=== PATIENT | female | born 1965 | race Caucasian/White ===

== ENCOUNTER 2023-11-09 13:54 | Outpatient (AMB) | payer OTHER, SELFPAY ==
--- NOTE | 2023-11-09 14:11 | HO.NEPHOV_ITS ---
HPI HPI Comments History of Present Illness Details I would the privilege of seeing Fabiola in follow-up of hypertension on a background of SLE. She is currently grieving from unexpected sudden loss of her . She has history of a TIA symptoms affecting right side. She has lost close to 40 lb of weight. Her hemoglobin A1c was 5.6. Her renal functions have been stable. She gets Benlysta for her lupus. She has been having ongoing issues with joint swelling despite infusions. She has no hematuria or proteinuria. She denies nausea, vomiting, diarrhea, shortness of breath, paroxysmal nocturnal dyspnea, orthopnea or pedal edema. All other systems have been reviewed and were negative. [facility] Medical History (Updated 11/09/23 @ 14:53 by Yasir Mcwilliams MD) SLE (systemic lupus erythematosus) Essential (primary) hypertension Social History (Updated 11/09/23 @ 14:20 by Maria Luisa Kim MA) Patient Tobacco Use Status: Never used Tobacco Use of substances other than those prescribed or required for medical reasons: No Vital Signs 11/09/23 14:12 Height 5 ft 1 in Weight 155 lb 2 oz BMI 29.3 BP 100/64 Blood Pressure Location Lt brachial Position Sitting Pulse 87 Pulse Source Pulse Oximeter Pulse Oximetry (%) 96 Oxygen Delivery Method Room Air Physical Exam Vital Signs: Last Vital Signs Pulse 87 11/09/23 14:12 BP 100/64 11/09/23 14:12 Pulse Ox 96 11/09/23 14:12 Oxygen Delivery Method Room Air 11/09/23 14:12 BMI result Body Mass Index 29.3 Const General: comfortable and no acute distress Orientation/consciousness: patient oriented x3 HEENT Head: Yes normocephalic Mouth: Normal oral and palatal mucosa present Eyes EOM: EOMs intact bilaterally Neck Neck: Yes supple Resp Auscultation: clear to auscultation bilaterally Cardio Jugular venous distension: no JVD Rate: regular rate GI Palpation (GI): Soft to palpation Auscultation: normal bowel sounds General: Yes no CVA tenderness Back/Spine/Pelvis Back: no CVA tenderness Skin General skin exam: no rashes or lesions noted Neuro General: patient oriented x3 and moves all extremities Extrem General: Yes no pedal edema Assessment & Plan Assessment & Plan (1) SLE (systemic lupus erythematosus): Code(s): M32.9 - Systemic lupus erythematosus, unspecified Qualifiers: Systemic lupus erythematosus type: unspecified Systemic lupus erythematosus organ involvement: unspecified Qualified Code(s): M32.9 - Systemic lupus erythematosus, unspecified (2) Essential (primary) hypertension: Code(s): I10 - Essential (primary) hypertension Plan Her blood pressure is at goal. She is on Benlysta. Her last A1c was 5.6. She is tolerating lisinopril well. She does not have any orthostatic symptoms. She could continue current dose of lisinopril and amlodipine. She has on a low- sodium diet. Her renal functions had been stable. She had no evidence of SLE nephritis. I did not make any medication changes today. Follow-up blood work ordered. Follow-up appointment given. Answered all questions. Orders: Orders Blood Urea Nitrogen Today I10 - Essential (primary) hypertension, M32.9 - Systemic lupus erythematosus, unspecified Creatinine Today I10 - Essential (primary) hypertension, M32.9 - Systemic lupus erythematosus, unspecified UA and rflx microscopic Today I10 - Essential (primary) hypertension, M32.9 - Systemic lupus erythematosus, unspecified Protein Creatinine Ratio, Ur Today I10 - Essential (primary) hypertension, M32.9 - Systemic lupus erythematosus, unspecified Electrolytes Today I10 - Essential (primary) hypertension, M32.9 - Systemic lupus erythematosus, unspecified Calcium Today I10 - Essential (primary) hypertension, M32.9 - Systemic lupus erythematosus, unspecified Coding Level of Care Code Est Pt Level 3 (44016) Diagnoses Systemic lupus erythematosus, unspecified SLE type, unspecified organ involvement status M32.9 Systemic lupus erythematosus type: unspecified Systemic lupus erythematosus organ involvement: unspecified Essential (primary) hypertension I10 Results Reviewed Nephrology Results: No Data to Display
[2023-11-09 14:12] VITALS: BP 100/64; PULSE 87; O2SAT 96; BMI 29.3
== END 2023-11-09 15:12 | disposition home or self-care (01) ==
PROVIDERS: PCP Internal Medicine; Visit Provider Internal Medicine Nephrology
DX: M32.9 Systemic lupus erythematosus, unspecified (principal); I10 Essential (primary) hypertension
CPT/HCPCS: 99213

== ENCOUNTER → 2023-11-09 13:54 | Outpatient (BNVA) | payer OTHER, SELFPAY | PROVIDERS: PCP Internal Medicine; Visit Provider Internal Medicine Nephrology ==

== ENCOUNTER 2024-05-11 13:13 | Outpatient (AMB) | payer OTHER, SELFPAY ==
--- NOTE | 2024-05-11 13:17 | HO.NEPHOV_ITS ---
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 Accompanied by: Self / Same As Patient Allergies clindamycin Allergy (Verified 05/11/24 13:23) Unknown codeine Allergy (Verified 05/11/24 13:23) Unknown erythromycin base Allergy (Verified 05/11/24 13:23) Unknown escitalopram [From Lexapro] Allergy (Verified 05/11/24 13:23) Unknown hydroxychloroquine Allergy (Verified 05/11/24 13:23) Unknown metronidazole Allergy (Verified 05/11/24 13:23) Unknown Penicillins Allergy (Verified 05/11/24 13:23) Unknown propoxyphene Allergy (Verified 05/11/24 13:23) Unknown Sulfa (Sulfonamide Antibiotics) Allergy (Verified 05/11/24 13:23) Unknown HPI Comments Details: I would the privilege of seeing Fabiola in follow-up of hypertension on a background of SLE. She is still grieving from unexpected sudden loss of her . She has history of a TIA symptoms affecting right side. She has lost close to 40 lb of weight. Her hemoglobin A1c was 5.6. Her renal functions have been stable. She gets Benlysta for her lupus. She has been having ongoing issues with joint swelling despite infusions. She has no hematuria or proteinuria. She denies nausea, vomiting, diarrhea, shortness of breath, paroxysmal nocturnal dyspnea, orthopnea or pedal edema. All other systems have been reviewed and were negative. [facility] Medical History (Updated 11/09/23 @ 14:53 by Yasir Mcwilliams MD) SLE (systemic lupus erythematosus) Essential (primary) hypertension Social History Patient Tobacco Use Status: Never used Tobacco Review of Systems Const All systems reviewed & are unremarkable except as noted in HPI and below Physical Exam Vital Signs: Last Vital Signs Pulse 81 05/11/24 13:21 BP 124/82 05/11/24 13:21 Pulse Ox 97 05/11/24 13:21 Oxygen Delivery Method Room Air 05/11/24 13:21 BMI result Body Mass Index 29.6 Const General: comfortable and no acute distress Orientation/consciousness: patient oriented x3 HEENT Head: Yes normocephalic Mouth: Normal oral and palatal mucosa present Eyes EOM: EOMs intact bilaterally Neck Neck: Yes supple Resp Auscultation: clear to auscultation bilaterally Cardio Jugular venous distension: no JVD Rate: regular rate GI Palpation (GI): Soft to palpation Auscultation: normal bowel sounds General: Yes no CVA tenderness Back/Spine/Pelvis Back: no CVA tenderness Skin General skin exam: no rashes or lesions noted Neuro General: patient oriented x3 and moves all extremities Extrem General: Yes no pedal edema Results Reviewed Nephrology Results: No Data to Display Assessment & Plan Assessment & Plan (1) SLE (systemic lupus erythematosus): Code(s): M32.9 - Systemic lupus erythematosus, unspecified Category: Medical Qualifiers: Systemic lupus erythematosus organ involvement: unspecified Systemic lupus erythematosus type: unspecified Qualified Code(s): M32.9 - Systemic lupus erythematosus, unspecified (2) Essential (primary) hypertension: Code(s): I10 - Essential (primary) hypertension Category: Medical Plan Her blood pressure is at goal. She is on Benlysta. Her last A1c was 5.6. She is off lisinopril and Amlodipine. She does not have any orthostatic symptoms. She has on a low-sodium diet. Her renal functions had been stable. She had no evidence of SLE nephritis. I did not make any medication changes today. Follow-up blood work ordered. Answered all questions Orders: Orders Creatinine Today I10 - Essential (primary) hypertension, M32.9 - Systemic lupus erythematosus, unspecified UA and rflx microscopic Today I10 - Essential (primary) hypertension, M32.9 - Systemic lupus erythematosus, unspecified Protein Creatinine Ratio, Ur Today I10 - Essential (primary) hypertension, M32.9 - Systemic lupus erythematosus, unspecified Blood Urea Nitrogen Today I10 - Essential (primary) hypertension, M32.9 - Systemic lupus erythematosus, unspecified Electrolytes Today I10 - Essential (primary) hypertension, M32.9 - Systemic lupus erythematosus, unspecified Coding Level of Care Code Est Pt Level 4 (07067) Diagnoses Systemic lupus erythematosus, unspecified SLE type, unspecified organ involvement status M32.9 Systemic lupus erythematosus organ involvement: unspecified Systemic lupus erythematosus type: unspecified Essential (primary) hypertension I10
[2024-05-11 13:21] VITALS: BP 124/82; PULSE 81; O2SAT 97; BMI 29.6
== END 2024-05-11 14:01 | disposition home or self-care (01) ==
PROVIDERS: PCP Internal Medicine; Visit Provider Internal Medicine Nephrology
DX: M32.9 Systemic lupus erythematosus, unspecified (principal); I10 Essential (primary) hypertension
CPT/HCPCS: 99214

== ENCOUNTER → 2024-05-11 13:13 | Outpatient (BNVA) | payer OTHER, SELFPAY | PROVIDERS: PCP Internal Medicine; Visit Provider Internal Medicine Nephrology ==

== ENCOUNTER 2025-05-27 13:55 | Outpatient (AMB) | payer OTHER, SELFPAY ==
--- NOTE | 2025-05-27 14:08 | HO.NEPHOV_ITS ---
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 Accompanied by: Self / Same As Patient Allergies clindamycin Allergy (Verified 05/27/25 14:09) Unknown codeine Allergy (Verified 05/27/25 14:09) Unknown erythromycin base Allergy (Verified 05/27/25 14:09) Unknown escitalopram (From Lexapro) Allergy (Verified 05/27/25 14:09) Unknown hydroxychloroquine Allergy (Verified 05/27/25 14:09) Unknown metronidazole Allergy (Verified 05/27/25 14:09) Unknown Penicillins Allergy (Verified 05/27/25 14:09) Unknown propoxyphene Allergy (Verified 05/27/25 14:09) Unknown Sulfa (Sulfonamide Antibiotics) Allergy (Verified 05/27/25 14:09) Unknown HPI Comments Details: Fabiola was seen in follow-up of hypertension and proteinuria on a background of SLE. She is still grieving from unexpected sudden loss of her . She has history of a TIA symptoms affecting right side. She has lost significant weight. Her renal functions have been stable. She gets Benlysta for her lupus. She has been having ongoing issues with joint swelling despite infusions. She has no hematuria . She denies nausea, vomiting, diarrhea, shortness of breath, paroxysmal nocturnal dyspnea, orthopnea or pedal edema. All other systems have been reviewed and were negative. [facility] Medical History (Updated 05/27/25 @ 14:13 by Yasir Mcwilliams MD) SLE (systemic lupus erythematosus) Essential (primary) hypertension Social History Patient Tobacco Use Status: Never used Tobacco Review of Systems Const All systems reviewed & are unremarkable except as noted in HPI and below Physical Exam Const General: comfortable and no acute distress Orientation/consciousness: patient oriented x3 HEENT Head: Yes normocephalic Mouth: Normal oral and palatal mucosa present Eyes EOM: EOMs intact bilaterally Neck Neck: Yes supple Resp Auscultation: clear to auscultation bilaterally Cardio Jugular venous distension: no JVD Rate: regular rate GI Palpation (GI): Soft to palpation Auscultation: normal bowel sounds General: Yes no CVA tenderness Back/Spine/Pelvis Back: no CVA tenderness Skin General skin exam: no rashes or lesions noted Neuro General: patient oriented x3 and moves all extremities Extrem General: Yes no pedal edema Assessment & Plan Assessment & Plan (1) SLE (systemic lupus erythematosus): Code(s): M32.9 - Systemic lupus erythematosus, unspecified Category: Medical Qualifiers: Systemic lupus erythematosus organ involvement: unspecified Systemic lupus erythematosus type: unspecified Qualified Code(s): M32.9 - Systemic lupus erythematosus, unspecified (2) Essential (primary) hypertension: Code(s): I10 - Essential (primary) hypertension Category: Medical (3) Proteinuria: Code(s): R80.9 - Proteinuria, unspecified Category: Medical Qualifiers: Proteinuria type: other Qualified Code(s): R80.8 - Other proteinuria Plan Her blood pressure is at goal. She is on Benlysta. She is on lisinopril which I increased to 2.5 mg bid. She does not have any orthostatic symptoms. She has on a low-sodium diet. Her renal functions had been stable. I did not make any medication changes today. Follow-up blood work ordered. Answered all questions Orders: Orders Protein Creatinine Ratio, Ur 6 Months I10 - Essential (primary) hypertension, M32.9 - Systemic lupus erythematosus, unspecified, R80.8 - Other proteinuria Medications: Changed From lisinopril 2.5 mg PO DAILY 90 tabs 3RF To lisinopril 2.5 mg PO BID 60 tabs 11RF 30 days Coding Level of Care Code Est Pt Level 4 (89141) Diagnoses Systemic lupus erythematosus, unspecified SLE type, unspecified organ involvement status M32.9 Systemic lupus erythematosus organ involvement: unspecified Systemic lupus erythematosus type: unspecified Essential (primary) hypertension I10 Other proteinuria R80.8 Proteinuria type: other
[2025-05-27 14:10] VITALS: BP 102/70; BMI 28.8
--- OUTSIDE RECORDS SUMMARY | 2025-05-27 15:15 | XMS_ITS | Clinical Summary ---
Author Organization [facility] Address [address] [facility] [address] [place] [address] Phone Care Team Providers Care Logistics Manager Name Role Phone Jamil Guillermo MD Primary Care Provider [phone] Allergies Active Allergy Reactions Criticality Noted Date Comments Clindamycin Other (see comments) 06/29/2021 Codeine Other (see comments) 06/29/2021 Erythromycin Other (see comments) 06/29/2021 Hydroxychloroquine Other (see comments) 021 Escitalopram Other (see comments) 06/29/2021 Metronidazole 11/18/2022 Penicillins Other (see comments) 06/29/2021 Propoxyphene Other (see comments) 06/29/2021 Sulfa Antibiotics Other (see comments) 06/29/20 21 Sulfamethoxazole-Trimethoprim 2022 Medications propranolol LA (INDERAL LA) 60 MG 24 hr capsule Take 1 capsule by mouth 1 (one) time each day Active rosuvastatin (CRESTOR) 20 MG tablet Take 1 tablet by mouth 1 (one) time each day Active amitriptyline (ELAVIL) 25 MG tablet Take 2 tablets by mouth every night 1 Active omeprazole (PriLOSEC) [address] capsule Take 1 capsule by mouth 1 (one) time each day 1 Active Benlysta 120 MG reconstituted solution 2 Active D3-50 1.25 MG (34367 UT) capsule Take 50,000 Units by mouth every 30 (thirty) days 2 Active EPINEPHrine (EPIPEN) 0.3 MG/0.3ML injection syringe 3 Active levoFLOXacin (LEVAQUIN) 750 MG tablet Take 750 mg by mouth 1 (one) time each day 3 Active predniSONE (DELTASONE) 20 MG tablet Take 1.5 tablets by mouth 1 (one) time each day 3 Active lisinopril 20 MG tablet Take 1.5 tablets (30 mg total) by mouth 1 (one) time each day 135 tablet 3 3 Active Mounjaro 2.5 MG/0.5ML solution pen-injector 3 Active Ruxolitinib Phosphate (Opzelura) 1.5 % cream Apply topically Active amLODIPine (NORVASC) 5 MG tablet Take 1 tablet (5 mg total) by mouth 1 (one) time each day 90 tablet 3 3 Active Active Problems Problem Noted Date Diagnosed Date Obese class I 11/18/2022 Dyslipidemia 06/29/2021 Essential hypertension 06/29/2021 Hypothyroidism 06/29/2021 Systemic lupus erythematosus 06/29/2021 Immunizations Immunization Administration Dates Next Due Influenza Split High Dose Preservative Free IM 1 Family History Medical History Relation Comments Cancer Mother breast also gran dmother Diabetes Mother grandmother Hypertension Mother Stroke Mother Relation Status Comments Mother Social History Tobacco Use Types Packs/Day Years Used Date Smoking Tobacco: Some Days Smokeless Tobacco: Never Tobacco Cessation:Ready to Q uit: Not Asked; Counseling Given: Not Answered Alcohol Use Standard Drinks/Week Comments No 0 (1 standard drink = 0.6 oz pur e alcohol) Comments Unknown Sex and Gender Information Value Date Recorded Sex Assigned at Not on file Legal Sex Female 4:46 PM EST Gender Identity Not on file Sexual Orientation Not on file Last Filed Vital Signs Vital Sign Reading Time Taken Comments Blood Pressure 110/70 06/27/2023 12:58 PM EDT Pulse 74 06/27/2023 12:58 PM EDT Temperature - - Respiratory Rate - - Oxygen Saturation 96% 06/27/2023 12:58 PM EDT Inhaled Oxygen Concentration - - Weight 78.7 kg (173 lb 9.6 oz) 06/27/2023 12:58 PM EDT Height 154.9 cm (5' 1 ) 06/30/2020 12:00 PM EDT Body Mass Index 32.8 06/30/2020 12:00 PM EDT Plan of Treatment Health Maintenance Due Date Last Done Comments Breast Cancer Screening 1965 Hepatitis B Vaccine (1 of 3 - 19+ 3-dose series) 07/03 Pneumococcal Vaccine: 50+ Years (1 of 2 - PCV) 985 Colorectal Cancer Screening: Annual FOBT 2015 Colorectal Cancer Screening: Colonoscopy 2015 Colorectal Cancer Screening: Sigmoidoscopy 2015 Influenza Vaccine (#1) 2025 07/14/2016 Insurance Unicare Un[employer]are Care Teams Logistics Manager Relationship Specialty Start Date End Date Jamil Guillermo MD [facility] [address] [place] [address] [place] [address] PCP - General 10/13/20
== END 2025-05-27 14:31 | disposition home or self-care (01) ==
LOC: HO.HKA 13:55
PROVIDERS: PCP Internal Medicine; Visit Provider Internal Medicine Nephrology
DX: M32.9 Systemic lupus erythematosus, unspecified (principal); I10 Essential (primary) hypertension; R80.8 Other proteinuria
CPT/HCPCS: 99214